=== PATIENT | male | born 1980 | race Caucasian/White ===

== ENCOUNTER 2024-12-27 23:22 | Emergency (ER) | payer OTHER ==
[~2024-12-27] VITALS: Ht 175.3 cm; Wt 90.0 kg
[2024-12-27 23:25] VITALS: O2SAT 99
[2024-12-28] MEDS: ACETAMINOPHEN 500MG TABLET PO ONE (00:11)
[2024-12-28] MEDS: TETANUS, DIPHTHERIA, PERTUSSIS VAC/PF 0.5ML (>10YR OLD) IM ONE (00:12)
[2024-12-28] MEDS: LIDOCAINE HCL 1% 20ML VIAL INFIL ONE (00:12)
[2024-12-28] MEDS: ONDANSETRON HCL 4MG/2ML INJ IV ONE (00:12)
[2024-12-28 00:13] LABS: BASOPHILS % 0.6 % (0.0-2.0); EOSINOPHILS % 0.8 % (0.0-5.0); HEMATOCRIT. 41.8 % (42.0-52.0); HEMOGLOBIN. 14.1 g/dL (14.0-18.0); LYMPHOCYTES % 23.8 % (20.0-50.0); MEAN PLATELET VOLUME 7.4 fl (7.4-10.4); MONOCYTES % 6.4 % (2.0-8.0); NEUTROPHILS % 68.4 % (40.0-76.0); PLATELET 352 x1000/uL (130-400); RED BLOOD CELL COUNT 4.80 mill/uL (4.7-6.1); RED CELL DISTRIBUTION WIDTH 13.4 % (11.6-14.6)
[2024-12-28 00:20] LABS: CREATININE 1.2 mg/dL (0.6-1.3); UREA NITROGEN BLOOD 16 mg/dL (9-23)
[2024-12-28] MEDS: MORPHINE SULFATE 4 MG/ML INJ (FOR IV/IM USE) IV ONE (03:54)
[2024-12-28] MEDS: AMOXICILLIN/POTASSIUM CLAVULANATE 875/125MG TAB PO ONE (04:09)
[2024-12-28] MEDS ORDERED: GUAI600T26 MT (05:22)
[2024-12-28] MEDS ORDERED: AMOX1TAB16 MT (05:22)
[2024-12-28] MEDS ORDERED: IBUP-1455 MT (05:22)
[2024-12-28 05:40] VITALS: TEMP 36.2
[2024-12-28 06:15] VITALS: BP 135/64; PULSE 72; RESP 18; O2SAT 99
[2024-12-28] MEDS ORDERED: HYDR-4001 MT (06:43)
== END 2024-12-28 07:09 | disposition home or self-care (01) ==
LOC: ER 23:59
DX: S02.5XXA Fracture of tooth (traumatic), initial encounter for closed fracture (principal); S02.2XXA Fracture of nasal bones, initial encounter for closed fracture; S01.81XA Laceration without foreign body of other part of head, initial encounter; R55 Syncope and collapse; I10 Essential (primary) hypertension; F12.90 Cannabis use, unspecified, uncomplicated; W19.XXXA Unspecified fall, initial encounter; Y93.89 Activity, other specified; Y92.89 Other specified places as the place of occurrence of the external cause; Y99.8 Other external cause status
CPT/HCPCS: 80048; 85025; 36415; 12014; 99285; 70450; 70486; 72125; 90715; 93005; 90471; 96374; 96375; J2003; J2405; J2270; Z7610